=== PATIENT | female | born 1935 | race Caucasian/White ===

== ENCOUNTER 2016-05-13 08:31 | Outpatient (CLI) | payer MEDICARE, OTHER | END 2016-05-13 08:32 | disposition home or self-care (01) | DX: Z00.00 Encounter for general adult medical examination without abnormal findings (principal); E55.9 Vitamin D deficiency, unspecified; E78.5 Hyperlipidemia, unspecified ==

== ENCOUNTER 2016-07-26 15:12 | Outpatient (CLI) | payer MEDICARE, OTHER | END 2016-07-26 15:13 | disposition home or self-care (01) | DX: M85.88 Other specified disorders of bone density and structure, other site (principal); M48.56XA Collapsed vertebra, not elsewhere classified, lumbar region, initial encounter for fracture; M51.36 Other intervertebral disc degeneration, lumbar region; M47.896 Other spondylosis, lumbar region ==

== ENCOUNTER 2017-01-22 10:00 | Outpatient (CLI) | payer MEDICARE, OTHER ==
[2017-01-22 11:58] LABS: BASOPHILS % (AUTO) 0.5 %; EOSINOPHILS # (AUTO) 0.2 10^3/uL (0.0-0.7); EOSINOPHILS % (AUTO) 4.1 %; HCT - HEMATOCRIT 42.8 % (37.0-47.0); HGB - HEMOGLOBIN 14.3 g/dL (12.0-16.0); LYMPHOCYTES # (AUTO) 1.3 10^3/uL (1.5-3.5); LYMPHOCYTES % (AUTO) 22.7 %; MEAN CORPUSCULAR HEMOGLOBIN 31.6 pg (27.0-31.0); MEAN CORPUSCULAR HGB CONC 33.4 g/dL (32.0-36.0); MEAN CORPUSCULAR VOLUME 94.8 fL (81.0-99.0); MEAN PLATELET VOLUME 7.1 fL (7.9-10.8); MONOCYTES # (AUTO) 0.4 10^3/uL (0.0-1.0); MONOCYTES % (AUTO) 7.1 %; NEUTROPHILS # (AUTO) 3.8 10^3/uL (1.5-6.6); NEUTROPHILS % (AUTO) 65.6 %; RED BLOOD COUNT 4.52 10^6/uL (4.20-5.40); RED CELL DISTRIBUTION WIDTH 13.6 % (12.0-15.0); UNCORRECTED WHITE BLOOD COUNT 5.7 x10^3/uL; WHITE BLOOD COUNT 5.7 x10^3/uL (4.8-10.8)
[2017-01-22 12:01] LABS: ALBUMIN/GLOBULIN RATIO 1.4 (1.0-2.2); BILIRUBIN,TOTAL 0.8 mg/dL (0.2-1.0); CALCIUM 9.5 mg/dL (8.5-10.3); CREATININE 0.8 mg/dL (0.4-1.0); PHOSPHORUS 4.2 mg/dL (2.5-4.6); POTASSIUM 3.7 mmol/L (3.5-5.0); TOTAL PROTEIN 7.1 g/dL (6.7-8.2); URIC ACID 3.1 mg/dL (2.6-7.2)
[2017-01-27 22:06] LABS: HDL LARGE 4892 nmol/L (5038-17886); LDL MEDIUM 315 nmol/L (121-397); LDL PARTICLE NUMBER 1398 nmol/L (1016-2185); LDL PATTERN A Pattern (A); LDL PEAK SIZE 222.9 Angstrom (> OR = 218.2); LDL SMALL 152 nmol/L (115-386)
[2017-01-31 12:36] LABS: TEST RESULT REPORT
== END 2017-01-22 10:01 | disposition home or self-care (01) ==
LOC: LAB 10:00
PROVIDERS: ATTEND Nurse Practitioner Family
DX: Z00.00 Encounter for general adult medical examination without abnormal findings (principal); Z00.01 Encounter for general adult medical examination with abnormal findings; E78.4 Other hyperlipidemia; E55.9 Vitamin D deficiency, unspecified; Z79.899 Other long term (current) drug therapy
CPT/HCPCS: 36415; 80053; 81599; 82306; 82465; 82977; 83615; 83704; 83718; 83930; 84100; 84478; 84550; 85025

== ENCOUNTER 2017-06-03 10:01 | Outpatient (CLI) | payer MEDICARE, OTHER ==
--- NOTE | 2017-06-03 12:40 | XRAY Report ---
LUMBAR SPINE: 06/03/2017 COMPARISON: Lumbar spine 07/26/2016. INDICATION: Increasing back pain at L5. TECHNIQUE: Three views FINDINGS: There is moderate to severe disk space narrowing at T12-L1, L2-L3, L3 -L4. There is moderate disk space narrowing at L1-L2 and L5-S1. There is mild disk space narrowing at L4-L5. There are moderate multilevel anterior osteophytes. There is mild lateral curvature of the lumbar spine. No evidence of acute fracture. 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 NO APPRECIABLE CHANGE. TD: 06/03/2017 12:40 MTDD
== END 2017-06-03 10:02 | disposition home or self-care (01) ==
LOC: DI 10:01
PROVIDERS: ATTEND Nurse Practitioner Family
DX: M54.5 Low back pain (principal)
CPT/HCPCS: 72100

== ENCOUNTER 2021-05-29 10:15 | Outpatient (CLI) | payer MEDICARE, BC ==
[2021-05-29 10:49] LABS: BASOPHILS % (AUTO) 0.8 %; EOSINOPHILS # (AUTO) 0.1 10^3/uL (0.0-0.7); EOSINOPHILS % (AUTO) 1.6 %; HCT - HEMATOCRIT 45.2 % (37.0-47.0); HGB - HEMOGLOBIN 14.9 g/dL (12.0-16.0); LYMPHOCYTES # (AUTO) 1.2 10^3/uL (1.5-3.5); LYMPHOCYTES % (AUTO) 24.7 %; MEAN CORPUSCULAR HEMOGLOBIN 32.9 pg (27.0-31.0); MEAN CORPUSCULAR VOLUME 99.8 fL (81.0-99.0); MONOCYTES # (AUTO) 0.4 10^3/uL (0.0-1.0); NEUTROPHILS # (AUTO) 3.1 10^3/uL (1.5-6.6); NEUTROPHILS % (AUTO) 63.5 %; PLT - PLATELET COUNT 255 10^3/uL (130-450); RED BLOOD COUNT 4.53 10^6/uL (4.20-5.40); RED CELL DISTRIBUTION WIDTH 13.2 % (12.0-15.0); WHITE BLOOD COUNT 4.9 x10^3/uL (4.8-10.8)
[2021-05-29 11:07] LABS: ALBUMIN 4.2 g/dL (3.2-5.5); ALBUMIN/GLOBULIN RATIO 1.4 (1.0-2.2); CALCIUM 9.3 mg/dL (8.5-10.3); CREATININE 0.7 mg/dL (0.4-1.0); POTASSIUM 3.9 mmol/L (3.5-5.0); TOTAL PROTEIN 7.2 g/dL (6.7-8.2)
[2021-05-29 11:54] LABS: ESTIMATED AVERAGE GLUCOSE 105 mg/dL (70-100); HEMOGLOBIN A1c% 5.3 % (4.27-6.07)
== END 2021-05-29 10:16 | disposition home or self-care (01) ==
LOC: LAB 10:15
PROVIDERS: ATTEND Physician Assistant
DX: Z13.1 Encounter for screening for diabetes mellitus (principal); Z13.9 Encounter for screening, unspecified; M85.88 Other specified disorders of bone density and structure, other site
CPT/HCPCS: 36415; 80053; 83036; 85025

== ENCOUNTER 2021-06-11 13:56 | Outpatient (CLI) | payer MEDICARE, BC ==
--- NOTE | 2021-06-11 16:35 | DEXA Report ---
PROCEDURE: Dexa Spine and/or Hip INDICATIONS: POST MENOPAUSAL TECHNIQUE: Dual energy x-ray absorptiometry (DXA) was performed on a [employer]. Regions measur ed are the AP Spine, femoral neck, and if needed forearm. COMPARISON: 07/26/2016. FINDINGS: Lumbar Spine: Bone Mineral Density 1.190 g/cm/cm,T score 0.1, normal Left Hip: Bone Mineral Density 0.75 to g/cm/cm,T score -2.0, osteopenia Left Femoral Neck: Bone Mineral Density 0.760 g/cm/cm, T score -2.0, osteopenia (T score greater or equal to -1.0: NORMAL) (T score from -1.1 to -2.4: OSTEOPENIA) (T score less than or equal to -2.5 to: OSTEOPOROSIS) Impression: Osteopenia. Bone marrow density has decreased 8.3% in the interval since prior exam obtained 07/26/2016 . Patients with diagnosis of osteoporosis or osteopenia should have regular bone mineral density assess ment. For those eligible for Medicare, routine testing is allowed once every 2 years. Testing frequ ency can be increased for patients who have rapidly progressing disease or for those who are receivin g medical therapy to restore bone mass. Reviewed by: Sangita Cordero MD, PhD on 06/11/2021 4:33 PM PDT Approved by: Sangita Cordero MD, PhD on 06/11/2021 4:33 PM PDT Station ID: [id number]
== END 2021-06-11 13:57 | disposition home or self-care (01) ==
LOC: DI 13:56
PROVIDERS: ATTEND Physician Assistant
DX: M85.89 Other specified disorders of bone density and structure, multiple sites (principal); Z78.0 Asymptomatic menopausal state

== ENCOUNTER 2022-06-23 08:53 | Outpatient (CLI) | payer MEDICARE, BC ==
[2022-06-23 09:12] LABS: BASOPHILS % (AUTO) 0.9 %; EOSINOPHILS # (AUTO) 0.3 10^3/uL (0.0-0.7); EOSINOPHILS % (AUTO) 5.7 %; HCT - HEMATOCRIT 44.9 % (37.0-47.0); HGB - HEMOGLOBIN 14.6 g/dL (12.0-16.0); LYMPHOCYTES # (AUTO) 0.9 10^3/uL (1.5-3.5); LYMPHOCYTES % (AUTO) 20.6 %; MEAN CORPUSCULAR HEMOGLOBIN 34.4 pg (27.0-31.0); MEAN CORPUSCULAR HGB CONC 32.5 g/dL (32.0-36.0); MEAN CORPUSCULAR VOLUME 105.9 fL (81.0-99.0); MEAN PLATELET VOLUME 8.8 fL (7.9-10.8); MONOCYTES # (AUTO) 0.5 10^3/uL (0.0-1.0); MONOCYTES % (AUTO) 10.3 %; NEUTROPHILS # (AUTO) 2.9 10^3/uL (1.5-6.6); NEUTROPHILS % (AUTO) 62.3 %; PLT - PLATELET COUNT 269 10^3/uL (130-450); RED BLOOD COUNT 4.24 10^6/uL (4.20-5.40); RED CELL DISTRIBUTION WIDTH 13.6 % (12.0-15.0); WHITE BLOOD COUNT 4.6 x10^3/uL (4.8-10.8)
[2022-06-23 09:27] LABS: ALBUMIN 3.5 g/dL (3.2-5.5); ALBUMIN/GLOBULIN RATIO 1.2 (1.0-2.2); BILIRUBIN,TOTAL 1.9 mg/dL (0.2-1.0); CALCIUM 8.9 mg/dL (8.5-10.3); CREATININE 0.7 mg/dL (0.4-1.0); POTASSIUM 3.7 mmol/L (3.5-5.0); TOTAL PROTEIN 6.4 g/dL (6.7-8.2)
[2022-06-23 09:42] LABS: THYROID STIMULATING HORMONE 2.4 uIU/mL (0.34-5.60)
[2022-06-23 09:50] LABS: FERRITIN 175.9 ng/mL (11.0-306.8)
[2022-06-23 09:54] LABS: FOLATE 6.48 ng/mL (5.90 - >24.8)
== END 2022-06-23 08:54 | disposition home or self-care (01) ==
LOC: LAB 08:53
PROVIDERS: ATTEND Physician Assistant
DX: R03.0 Elevated blood-pressure reading, without diagnosis of hypertension (principal); R25.2 Cramp and spasm; R41.3 Other amnesia
CPT/HCPCS: 36415; 80053; 82607; 82728; 82746; 84443; 85025

== ENCOUNTER 2023-06-16 08:00 | Outpatient (CLI) | payer MEDICARE, BC ==
--- NOTE | 2023-06-16 16:32 | XRAY Report ---
PROCEDURE: Wrist 3 View LT INDICATIONS: LEFT WRIST PAIN TECHNIQUE: 3 views of the wrist were acquired. COMPARISON: None. FINDINGS: Bones: Osteopenia. Degenerative changes of the wrist noted especially at the first carpometacarpal rosamaria int, STT joints. No fractures or dislocations. No suspicious bony lesions. Soft tissues: No radiographically evident soft tissue swelling IMPRESSION: No acute bony abnormality. Degenerative changes of the wrist Reviewed by: Eduin Cassidy MD on 06/16/2023 4:31 PM PDT Approved by: Eduin Cassidy MD on 06/16/2023 4:31 PM PDT Station ID: [id number]
== END 2023-06-16 23:59 | disposition home or self-care (01) ==
LOC: DI.WOS 08:00
PROVIDERS: ATTEND Orthopaedic Surgery
DX: M19.032 Primary osteoarthritis, left wrist (principal)

== ENCOUNTER 2023-07-13 16:37 | Outpatient (CLI) | payer MEDICARE, BC ==
--- NOTE | 2023-07-14 12:13 | XRAY Report ---
PROCEDURE: Wrist 3+V LT INDICATIONS: LEFT WRIST PAIN TECHNIQUE: 3 views of the wrist were acquired. COMPARISON: 06/16/2023 FINDINGS: Bones: There is a extra-articular, nonangulated fracture of the distal radial metadiaphysis. Minimal ly displaced ulnar styloid fracture. Soft tissues: No suspicious soft tissue calcifications or masses. IMPRESSION: Extra-articular, nonangulated fracture of the distal radial metadiaphysis. Minimally displaced ulnar styloid fracture. Reviewed by: Maximo Alcala MD on 07/14/2023 12:11 PM PDT Approved by: Maximo Alcala MD on 07/14/2023 12:11 PM PDT Station ID: [id number]
== END 2023-07-13 16:38 | disposition home or self-care (01) ==
LOC: DI 16:37
PROVIDERS: ATTEND Physician Assistant
DX: S52.552A Other extraarticular fracture of lower end of left radius, initial encounter for closed fracture (principal); S52.612A Displaced fracture of left ulna styloid process, initial encounter for closed fracture

== ENCOUNTER 2023-07-18 16:20 | Outpatient (CLI) | payer MEDICARE, BC ==
--- NOTE | 2023-07-19 00:26 | XRAY Report ---
PROCEDURE: Wrist 3+V LT INDICATIONS: LEFT FOREARM FRACTURE TECHNIQUE: 3 views of the wrist were acquired. COMPARISON: X-ray wrist 07/13/2023 FINDINGS: Bones: Stable alignment and healing of the distal radial metaphyseal fracture. In addition, stable a ppearance of ulnar styloid fracture. Significant first CMC arthritic change. Soft tissues: No suspicious soft tissue calcifications or masses. IMPRESSION: Stable alignment and appearance of distal radial metaphyseal as well as ulnar styloid fractures. Reviewed by: Aminata Eller MD on 07/19/2023 12:25 AM PDT Approved by: Aminata Eller MD on 07/19/2023 12:25 AM PDT Station ID: [id number]
== END 2023-07-18 16:21 | disposition home or self-care (01) ==
LOC: DI 16:20
PROVIDERS: ATTEND Orthopaedic Surgery
DX: S52.502A Unspecified fracture of the lower end of left radius, initial encounter for closed fracture (principal); S52.612A Displaced fracture of left ulna styloid process, initial encounter for closed fracture